=== PATIENT | female | born 1940 | race Two or more races ===

== ENCOUNTER 2018-07-24 02:22 | Emergency (ER) | payer MEDICARE ==
[2018-07-24 02:37] VITALS: BP 156/100
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
== END 2018-07-24 02:54 | disposition home or self-care (01) ==
LOC: JD.ED 02:22
DX: Z02.89 Encounter for other administrative examinations (principal); Z88.0 Allergy status to penicillin; Z79.82 Long term (current) use of aspirin; Z79.899 Other long term (current) drug therapy
CPT/HCPCS: 99283

== ENCOUNTER 2018-07-24 21:29 | Emergency (ER) | payer MEDICARE ==
[2018-07-24] MEDS ORDERED: Aspirin 81 MG Tab.Chew PO ONE (22:07)
[2018-07-24] MEDS ORDERED: Sodium Chloride 0.9% 10 ML Syringe FLUSH PRN (22:07)
--- NOTE | 2018-07-24 22:53 | EDM.PDOC ---
ED HPI GENERAL MEDICAL PROBLEM - General Chief Complaint: Chest Pain Stated Complaint: [facility] Time Seen by Provider: 07/24/18 22:45 - History of Present Illness INITIAL COMMENTS - FREE TEXT/NARRATIVE: 78-year-old female presents emergency room with chest pain and elevated hypertension. Patient had a bout of chest pain several hours ago Patient has long-standing coronary issues and has been incarcerated for the last couple of days and has been off her medications. Upon arrival here she is concerned about her blood pressure by her chest pain is gone and from talking to her chest pain is been on for a couple hours now. The patient denies any pain radiating into her arms no shortness of breath. Chest Pain Score (Numeric/FACES): 7 - Related Data Allergies Allergy/AdvReac Type Severity Reaction Status Date / Time Penicillins Allergy Severe Rash Verified 06/01/14 11:02 Home Meds: Home Meds Amiodarone [Pacerone] 0 mg PO DAILY 09/25/13 [History] Aspirin [Jonah Chewable] 81 mg PO DAILY 09/25/13 [History] Ramipril [Altace] 0 mg PO BID 09/25/13 [History] Ascorbate Calcium [Vitamin C] 500 mg PO DAILY 06/01/14 [History] Cholecalciferol (Vitamin D3) [Vitamin D] 1,000 units PO DAILY 06/01/14 [History] Doxazosin [Cardura] 1 mg PO BEDTIME 06/01/14 [History] Potassium Chloride [Klor-Con M20] 20 meq PO DAILY 06/01/14 [History] Past Medical History Cardiovascular History: Reports: Bypass, CAD, High Cholesterol, Hypertension Gastrointestinal History: Reports: Chronic Constipation Endocrine/Metabolic History: Reports: Hypothyroidism Other Endocrine/Metabolic History: states thyroid was removed - Past Surgical History Cardiovascular Surgical History: Reports: Coronary Artery Stent, Valve Replacement GI Surgical History: Reports: Other (See Below) Female Surgical History: Reports: Hysterectomy Social & Family History - Family History Family Medical History: Noncontributory - Tobacco Use Smoking Status *Q: Never Smoker - Caffeine Use Caffeine Use: Reports: Soda, Tea - Recreational Drug Use Recreational Drug Use: No ED ROS GENERAL - Review of Systems Review Of Systems: See Below Constitutional: Reports: No Symptoms HEENT: Reports: No Symptoms Respiratory: Reports: No Symptoms Cardiovascular: Reports: Chest Pain Endocrine: Reports: No Symptoms GI/Abdominal: Reports: No Symptoms : Reports: No Symptoms Musculoskeletal: Reports: No Symptoms Skin: Reports: No Symptoms Neurological: Reports: No Symptoms ED EXAM, GENERAL - Physical Exam Exam: See Below General Appearance: Alert, WD/WN, No Apparent Distress Ears: Normal External Exam, Normal Canal, Hearing Grossly Normal, Normal TMs Nose: Normal Inspection, Normal Mucosa, No Blood Throat/Mouth: Normal Inspection, Normal Lips, Normal Gums, Normal Oropharynx, Normal Voice, No Airway Compromise Head: Atraumatic, Normocephalic Neck: Normal Inspection, Supple, Non-Tender, Full Range of Motion Respiratory/Chest: No Respiratory Distress, Lungs Clear, Normal Breath Sounds, No Accessory Muscle Use, Chest Non-Tender Cardiovascular: Normal Peripheral Pulses, Regular Rate, Rhythm, No Edema, No Gallop, No JVD, No Murmur, No Rub GI/Abdominal: Normal Bowel Sounds, Soft, Non-Tender, No Organomegaly, No Distention, No Abnormal Bruit, No Mass Back Exam: Normal Inspection. No: CVA Tenderness (L), CVA Tenderness (R) Extremities: Normal Inspection. No: Pedal Edema EKG INTERPRETATION EKG Date: 07/25/18 Rhythm: Other (Paced rhythm) [place]: Normal P-Wave: Absent QRS: Wide ST-T: Other (Normal for a wide-complex paced rhythm) Comparison: NA - No Prior EKG Course - Vital Signs Last Recorded V/S: Last Vital Signs Temp 36.2 C 07/24/18 21:38 Pulse 78 07/24/18 21:38 Resp 15 07/24/18 21:38 BP 181/93 H 07/25/18 00:32 Pulse Ox 99 07/24/18 21:38 - Orders/Labs/Meds Orders: Active Orders 24 hr Category Date Time Status EKG Documentation Completion [RC] ASDIRECTED Care 07/24/18 22:07 Active Chest 1V Frontal [CR] Stat Exams 07/24/18 22:21 Taken Sodium Chloride 0.9% [Saline Flush] Med 07/24/18 22:07 Active 10 ml FLUSH ASDIRECTED PRN Saline Lock Insert [OM.PC] Routine Oth 07/24/18 22:07 Ordered EKG 12 Lead [EK] Stat Ther 07/24/18 22:07 Ordered Medication Orders Sodium Chloride (Saline Flush) 10 ml FLUSH ASDIRECTED PRN PRN Reason: Keep Vein Open Last Admin: 07/24/18 22:11 Dose: 10 ml Labs: Laboratory Tests 07/24/18 07/24/18 07/24/18 Range/Units 22:20 22:20 22:20 WBC 7.94 (3.98-10.04) K/mm3 RBC 5.44 H (3.98-5.22) M/mm3 Hgb 16.0 H D (11.2-15.7) gm/L Hct 46.4 H (34.1-44.9) % MCV 85.3 (79.4-94.8) fl MCH 29.4 (25.6-32.2) pg MCHC 34.5 (32.2-35.5) g/dl RDW Std Deviation 46.7 H (36.4-46.3) fL Plt Count 162 L (182-369) K/mm3 MPV 11.3 (9.4-12.3) fl Neut % (Auto) 68.1 (34.0-71.1) % Lymph % (Auto) 20.7 (19.3-51.7) % [place] % (Auto) 8.6 (4.7-12.5) % Eos % (Auto) 2.0 (0.7-5.8) Baso % (Auto) 0.6 (0.1-1.2) % Neut # (Auto) 5.41 (1.56-6.13) K/mm3 Lymph # (Auto) 1.64 (1.18-3.74) K/mm3 [place] # (Auto) 0.68 H (0.24-0.36) K/mm3 Eos # (Auto) 0.16 (0.04-0.36) K/mm3 Baso # (Auto) 0.05 (0.01-0.08) K/mm3 PT 10.9 (9.5-12.1) SECONDS INR 1.00 APTT 27 (24-31) SECONDS Sodium (136-145) mEq/L Potassium (3.5-5.1) mEq/L Chloride (98-107) mEq/L Carbon Dioxide (21-32) mEq/L Anion Gap (5-15) BUN (7-18) mg/dL Creatinine (0.55-1.02) mg/dL Est Cr Clr Drug Dosing mL/min Estimated GFR (MDRD) (>60) mL/min BUN/Creatinine Ratio (14-18) Glucose (83-115) mg/dL Calcium (8.5-10.1) mg/dL Magnesium (1.8-2.4) mg/dl Total Bilirubin (0.2-1.0) mg/dL AST (15-37) U/L ALT (14-59) U/L Alkaline Phosphatase (46-116) U/L CK-MB (CK-2) 4.1 H (0-3.6) ng/ml Troponin I < 0.017 (0.00-0.056) ng/mL Total Protein (6.4-8.2) g/dl Albumin (3.4-5.0) g/dl Globulin gm/dL Albumin/Globulin Ratio (1-2) 07/24/18 07/25/18 Range/Units 22:20 00:20 WBC (3.98-10.04) K/mm3 RBC (3.98-5.22) M/mm3 Hgb (11.2-15.7) gm/L Hct (34.1-44.9) % MCV (79.4-94.8) fl MCH (25.6-32.2) pg MCHC (32.2-35.5) g/dl RDW Std Deviation (36.4-46.3) fL Plt Count (182-369) K/mm3 MPV (9.4-12.3) fl Neut % (Auto) (34.0-71.1) % Lymph % (Auto) (19.3-51.7) % [place] % (Auto) (4.7-12.5) % Eos % (Auto) (0.7-5.8) Baso % (Auto) (0.1-1.2) % Neut # (Auto) (1.56-6.13) K/mm3 Lymph # (Auto) (1.18-3.74) K/mm3 [place] # (Auto) (0.24-0.36) K/mm3 Eos # (Auto) (0.04-0.36) K/mm3 Baso # (Auto) (0.01-0.08) K/mm3 PT (9.5-12.1) SECONDS INR APTT (24-31) SECONDS Sodium 141 (136-145) mEq/L Potassium 3.7 (3.5-5.1) mEq/L Chloride 105 (98-107) mEq/L Carbon Dioxide 24 (21-32) mEq/L Anion Gap 15.7 H (5-15) BUN 12 (7-18) mg/dL Creatinine 0.8 (0.55-1.02) mg/dL Est Cr Clr Drug Dosing 48.72 mL/min Estimated GFR (MDRD) > 60 (>60) mL/min BUN/Creatinine Ratio 15.0 (14-18) Glucose 95 (83-115) mg/dL Calcium 9.9 (8.5-10.1) mg/dL Magnesium 2.2 (1.8-2.4) mg/dl Total Bilirubin 0.7 (0.2-1.0) mg/dL AST 26 (15-37) U/L ALT 25 (14-59) U/L Alkaline Phosphatase 135 H (46-116) U/L CK-MB (CK-2) (0-3.6) ng/ml Troponin I 0.022 (0.00-0.056) ng/mL Total Protein 8.3 H (6.4-8.2) g/dl Albumin 4.2 (3.4-5.0) g/dl Globulin 4.1 gm/dL Albumin/Globulin Ratio 1.0 (1-2) Meds: Medications Generic Name Dose Route Start Last Admin Trade Name Freq PRN Reason Stop Dose Admin Sodium Chloride 10 ml 07/24/18 22:07 07/24/18 22:11 Saline Flush FLUSH 10 ml ASDIRECTED PRN Administration Keep Vein Open Discontinued Medications Generic Name Dose Route Start Last Admin Trade Name Freq PRN Reason Stop Dose Admin Aspirin 324 mg 07/24/18 22:07 07/24/18 22:11 Aspirin PO 07/24/18 22:08 324 mg ONETIME ONE Administration Levothyroxine Sodium 125 mcg 07/25/18 00:08 07/25/18 00:32 Levothyroxine PO 07/25/18 00:09 125 mcg ONETIME ONE Administration Lisinopril 10 mg 07/25/18 00:15 07/25/18 00:32 Prinivil PO 07/25/18 00:16 10 mg ONETIME ONE Administration - Re-Assessments/Exams Free Text/Narrative Re-Assessment/Exam: 07/25/18 01:54 Return evaluation is unrevealing chest x-ray shows no acute changes she has some cardiomegaly pacemaker noted. Initial labs unremarkable including a negative troponin follow-up as troponin was obtained and was negative as well the patient is been for the most part symptom-free with moderately elevated blood pressure here she was given some lisinopril. The patient will be discharged home not back to the assisted and can resume her normal medications this evening With her multiple risk factors did discuss staying in the hospital for further observation and she declined this option. Departure - Departure Time of Disposition: 01:56 Disposition: Home, Self-Care 01 Clinical Impression: Chest pain, Hypertension Referrals: Meghan Correa MD [Primary Care Provider] - Forms: ED Department Discharge Additional Instructions: Go home and resume all your routine medications. Return to the emergency room with any questions or problems - My Orders Last 24 Hours: My Active Orders 07/24/18 22:07 EKG Documentation Completion [RC] ASDIRECTED Sodium Chloride 0.9% [Saline Flush] 10 ml FLUSH ASDIRECTED PRN Saline Lock Insert [OM.PC] Routine EKG 12 Lead [EK] Stat 07/24/18 22:21 Chest 1V Frontal [CR] Stat - Assessment/Plan Last 24 Hours: My Active Orders 07/24/18 22:07 EKG Documentation Completion [RC] ASDIRECTED Sodium Chloride 0.9% [Saline Flush] 10 ml FLUSH ASDIRECTED PRN Saline Lock Insert [OM.PC] Routine EKG 12 Lead [EK] Stat 07/24/18 22:21 Chest 1V Frontal [CR] Stat
[2018-07-25] MEDS ORDERED: Levothyroxine 125 MCG Tab PO ONE (00:08)
[2018-07-25] MEDS ORDERED: Lisinopril 10 MG Tab PO ONE (00:15)
[2018-07-25 00:32] VITALS: BP 181/93
--- NOTE | 2018-07-26 06:34 | CR ---
Chest: Portable view of the chest was obtained. Comparison: Prior chest x-ray of 06/01/14. Heart is enlarged. 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 Tortuous thoracic aorta is seen. Pacemaker is present. Lungs are clear with no acute parenchymal change. Bony structures are grossly intact. Impression: 1. Mild cardiomegaly. Other findings as noted above. 2. Nothing acute is appreciated. Diagnostic code #2
== END 2018-07-25 02:00 | disposition home or self-care (01) ==
LOC: JD.ED 21:29 → SUPCPDRO 21:29 → JD.ED 07-25 02:00
DX: R07.9 Chest pain, unspecified (principal); I10 Essential (primary) hypertension; I25.10 Atherosclerotic heart disease of native coronary artery without angina pectoris; Z88.0 Allergy status to penicillin; Z79.82 Long term (current) use of aspirin; Z79.899 Other long term (current) drug therapy; E78.00 Pure hypercholesterolemia, unspecified
CPT/HCPCS: 36415; 71045; 80053; 82553; 83735; 84484; 85025; 85610; 85730; 93005; 99285; A9270; 93010; 99284

== ENCOUNTER 2024-03-26 13:31 | Inpatient (IN) | payer MEDICARE, MEDICAID ==
[2024-03-26 13:56] LABS: BASOPHILS PERCENT AUTO 0.4 % (0.0-1.0); EOSINOPHILS PERCENT AUTO 0.4 % (0.0-6.0); HEMATOCRIT 43.9 % (37.0-47.0); HEMOGLOBIN 14.2 gm/dl (12.0-16.0); IMMATURE GRAN ABSOLUTE AUTO 0.06 K/mm3 (0.00-0.05); IMMATURE GRAN PERCENT AUTO 0.5 % (0.0-0.4); LYMPHOCYTES ABSOLUTE AUTO 0.8 K/mm3 (1.0-4.8); LYMPHOCYTES PERCENT AUTO 7.1 % (24.0-44.0); MEAN CORPUSCULAR HEMOGLOBIN 28.7 pg (28.0-32.0); MEAN CORPUSCULAR HGB CONC 32.3 g/dl (32.0-36.0); MEAN CORPUSCULAR VOLUME 88.9 fl (83.0-99.0); MEAN PLATELET VOLUME 9.4 fl (9.4-12.3); MONOCYTES ABSOLUTE AUTO 0.9 K/mm3 (0.0-0.8); MONOCYTES PERCENT AUTO 8.3 % (0.0-8.0); NEUTROPHILS ABSOLUTE AUTO 9.4 K/mm3 (1.8-7.7); NEUTROPHILS PERCENT AUTO 83.3 % (41.0-71.0); PLATELET COUNT,PLT 252 K/mm3 (150-400); RED BLOOD CELL COUNT 4.94 M/mm3 (4.10-5.30); WHITE BLOOD CELL COUNT,WBC 11.27 K/mm3 (3.9-11.3)
[2024-03-26 14:08] LABS: INR 1.13; PROTHROMBIN TIME 11.9 SECONDS (9.7-12.0)
[2024-03-26 14:13] LABS: A/G RATIO 0.7 (1-2); ALANINE AMINOTRANSFERASE,ALT 24 U/L (14-59); ALBUMIN 2.9 g/dl (3.4-5.0); ALKALINE PHOSPHATASE 100 U/L (46-116); ANION GAP 16.2 (5-15); ASPARTATE AMNIOTRANSFERASE,AST 33 U/L (15-37); BLOOD UREA NITROGEN,BUN 13 mg/dL (7-18); BUN/CREATININE RATIO 21.7 (14-18); CALCIUM 8.9 mg/dL (8.5-10.1); CARBON DIOXIDE,CO2 27 mEq/L (21-32); CHLORIDE,CL 103 mEq/L (98-107); CREATINE KINASE,CK 282 U/L (26-192); CREATININE 0.6 mg/dL (0.55-1.02); ESTIMATED GFR 89 mL/min (>60); GLUCOSE RANDOM 90 mg/dL (70-99); LIPASE 41 U/L (16-77); MAGNESIUM 1.7 mg/dL (1.8-2.4); POTASSIUM,K 3.2 mEq/L (3.5-5.1); PROTEIN TOTAL,TP 6.8 g/dl (6.4-8.2); SODIUM,NA 143 mEq/L (136-145); TROPONIN I HIGH SENSITIVITY 27 pg/mL (<=51)
[2024-03-26] MEDS: Sodium Chloride 0.9% 1,000 ML IV ONE (14:25)
[2024-03-26 16:56] LABS: APPEARANCE,URINE SLT CLOUDY (Clear); BILIRUBIN,URINE NEGATIVE (Negative); COLOR,URINE YELLOW (Yellow); GLUCOSE,URINE NEGATIVE (Negative); KETONES,URINE 2+ (Negative); LEUKOCYTE ESTERASE,URINE TRACE (Negative); NITRITE,URINE POSITIVE (Negative); OCCULT BLOOD,URINE TRACE-INTACT (Negative); PH,URINE 5.5 (5.0-8.0); PROTEIN,URINE 2+ (Negative)
[2024-03-26 17:08] LABS: BACTERIA,URINE MANY /hpf (FEW); MUCUS,URINE FEW /hpf (FEW)
[2024-03-26 17:10] LABS: TSH 13.86 uIU/mL (0.358-3.74)
[2024-03-26] MEDS ORDERED: Levofloxacin/Dextrose 5%-Water 750 MG in Premix Bag 1 BAG IV SCH (17:15)
[2024-03-26] MEDS ORDERED: Sodium Chloride 0.9% 1,000 ML IV SCH (17:15)
[2024-03-26 17:31] LABS: T4 FREE 1.27 ng/dL (0.76-1.46)
[2024-03-26] MEDS ORDERED: Levofloxacin/Dextrose 5%-Water 750 MG in Premix Bag 1 BAG IV ONE (18:00)
[2024-03-26] MEDS: Sodium Chloride 0.9% 250 ML IV ONE (18:10)
[2024-03-26] MEDS: Potassium Chloride 20 MEQ Tab.ER PO ONE (18:14)
[2024-03-26] MEDS: Levofloxacin/Dextrose 5%-Water 750 MG in Premix Bag 1 BAG IV SCH (18:30)
[2024-03-26] MEDS: cefTRIAXone 1 GM Vial IVPUSH SCH (18:32)
[2024-03-26] MEDS: Magnesium Sulfate 2 GM/50 mL 2 GM in Premix Bag 1 BAG IV ONE (18:39)
[2024-03-26] MEDS: Doxycycline 100 MG in Sodium Chloride 0.9% 100 ML IV SCH (20:51)
[2024-03-26] MEDS: Acetaminophen 325 MG Tab PO PRN (20:56)
[2024-03-27 06:00] LABS: BASOPHILS PERCENT AUTO 0.5 % (0.0-1.0); EOSINOPHILS ABSOLUTE AUTO 0.2 K/mm3 (0.0-0.4); EOSINOPHILS PERCENT AUTO 2.3 % (0.0-6.0); HEMATOCRIT 37.5 % (37.0-47.0); IMMATURE GRAN ABSOLUTE AUTO 0.06 K/mm3 (0.00-0.05); IMMATURE GRAN PERCENT AUTO 0.8 % (0.0-0.4); LYMPHOCYTES ABSOLUTE AUTO 0.9 K/mm3 (1.0-4.8); LYMPHOCYTES PERCENT AUTO 11.6 % (24.0-44.0); MEAN CORPUSCULAR HEMOGLOBIN 28.6 pg (28.0-32.0); MEAN CORPUSCULAR HGB CONC 31.7 g/dl (32.0-36.0); MEAN CORPUSCULAR VOLUME 90.1 fl (83.0-99.0); MONOCYTES ABSOLUTE AUTO 0.8 K/mm3 (0.0-0.8); MONOCYTES PERCENT AUTO 10.2 % (0.0-8.0); NEUTROPHILS ABSOLUTE AUTO 5.9 K/mm3 (1.8-7.7); NEUTROPHILS PERCENT AUTO 74.6 % (41.0-71.0); PLATELET COUNT,PLT 203 K/mm3 (150-400); RED BLOOD CELL COUNT 4.16 M/mm3 (4.10-5.30); WHITE BLOOD CELL COUNT,WBC 7.86 K/mm3 (3.9-11.3)
[2024-03-27 06:03] LABS: HEMOGLOBIN 11.9 gm/dl (12.0-16.0)
[2024-03-27 06:13] LABS: A/G RATIO 0.7 (1-2); ALBUMIN 2.3 g/dl (3.4-5.0); ANION GAP 10.7 (5-15); BILIRUBIN TOTAL 0.5 mg/dL (0.2-1.0); BUN/CREATININE RATIO 25.7 (14-18); CALCIUM 8.2 mg/dL (8.5-10.1); CREATININE 0.7 mg/dL (0.55-1.02); EST CRCL DRUG DOSING (CG) 51.28 mL/min; POTASSIUM,K 3.7 mEq/L (3.5-5.1); PROTEIN TOTAL,TP 5.7 g/dl (6.4-8.2)
[2024-03-27] MEDS: Sodium Chloride 0.9% 1,000 ML IV SCH (08:05)
[2024-03-27 08:18] LABS: MAGNESIUM 2.2 mg/dL (1.8-2.4)
[2024-03-27] MEDS: Enoxaparin 40 MG/0.4 ML Syringe SUBCUT SCH (08:44)
[2024-03-27] MEDS ORDERED: FLU (Fluad Triv) TS24-25 (65UP)/MF59C/PF 45 MCG/0.5 ML Syringe IM ONE (09:00)
[2024-03-27] MEDS: Hydrochlorothiazide 12.5 MG Cap PO SCH (18:21)
[2024-03-28 05:47] LABS: BASOPHILS PERCENT AUTO 0.4 % (0.0-1.0); EOSINOPHILS ABSOLUTE AUTO 0.3 K/mm3 (0.0-0.4); EOSINOPHILS PERCENT AUTO 3.1 % (0.0-6.0); HEMATOCRIT 35.5 % (37.0-47.0); HEMOGLOBIN 11.6 gm/dl (12.0-16.0); IMMATURE GRAN ABSOLUTE AUTO 0.05 K/mm3 (0.00-0.05); IMMATURE GRAN PERCENT AUTO 0.6 % (0.0-0.4); LYMPHOCYTES ABSOLUTE AUTO 1.1 K/mm3 (1.0-4.8); LYMPHOCYTES PERCENT AUTO 12.9 % (24.0-44.0); MEAN CORPUSCULAR HEMOGLOBIN 29.1 pg (28.0-32.0); MEAN CORPUSCULAR HGB CONC 32.7 g/dl (32.0-36.0); MEAN CORPUSCULAR VOLUME 89.2 fl (83.0-99.0); MEAN PLATELET VOLUME 9.8 fl (9.4-12.3); MONOCYTES ABSOLUTE AUTO 0.8 K/mm3 (0.0-0.8); MONOCYTES PERCENT AUTO 9.4 % (0.0-8.0); NEUTROPHILS PERCENT AUTO 73.6 % (41.0-71.0); PLATELET COUNT,PLT 202 K/mm3 (150-400); RED BLOOD CELL COUNT 3.98 M/mm3 (4.10-5.30); WHITE BLOOD CELL COUNT,WBC 8.12 K/mm3 (3.9-11.3)
[2024-03-28 06:06] LABS: A/G RATIO 0.7 (1-2); ALBUMIN 2.4 g/dl (3.4-5.0); ANION GAP 12.6 (5-15); BILIRUBIN TOTAL 0.3 mg/dL (0.2-1.0); BUN/CREATININE RATIO 21.7 (14-18); CALCIUM 8.3 mg/dL (8.5-10.1); CREATININE 0.6 mg/dL (0.55-1.02); EST CRCL DRUG DOSING (CG) 65.47 mL/min; POTASSIUM,K 3.6 mEq/L (3.5-5.1); PROTEIN TOTAL,TP 5.7 g/dl (6.4-8.2)
[2024-03-28] MEDS: Levothyroxine 25 MCG Tab PO SCH (08:28)
[2024-03-28] MEDS: Aspirin 81 MG Tab.EC PO SCH (09:06)
[2024-03-28] MEDS: Polyethylene Glycol 3350 Powder 17 GM Packet PO PRN (13:53)
[2024-03-28] MEDS: Lisinopril 20 MG Tab PO SCH (20:26)
[2024-03-29 04:43] LABS: BASOPHILS PERCENT AUTO 0.5 % (0.0-1.0); EOSINOPHILS ABSOLUTE AUTO 0.3 K/mm3 (0.0-0.4); EOSINOPHILS PERCENT AUTO 4.5 % (0.0-6.0); HEMATOCRIT 36.6 % (37.0-47.0); HEMOGLOBIN 11.9 gm/dl (12.0-16.0); IMMATURE GRAN ABSOLUTE AUTO 0.03 K/mm3 (0.00-0.05); IMMATURE GRAN PERCENT AUTO 0.5 % (0.0-0.4); LYMPHOCYTES ABSOLUTE AUTO 1.2 K/mm3 (1.0-4.8); LYMPHOCYTES PERCENT AUTO 18.2 % (24.0-44.0); MEAN CORPUSCULAR HEMOGLOBIN 28.6 pg (28.0-32.0); MEAN CORPUSCULAR HGB CONC 32.5 g/dl (32.0-36.0); MEAN PLATELET VOLUME 10.3 fl (9.4-12.3); MONOCYTES ABSOLUTE AUTO 0.6 K/mm3 (0.0-0.8); MONOCYTES PERCENT AUTO 9.4 % (0.0-8.0); NEUTROPHILS ABSOLUTE AUTO 4.4 K/mm3 (1.8-7.7); NEUTROPHILS PERCENT AUTO 66.9 % (41.0-71.0); PLATELET COUNT,PLT 199 K/mm3 (150-400); RED BLOOD CELL COUNT 4.16 M/mm3 (4.10-5.30); WHITE BLOOD CELL COUNT,WBC 6.61 K/mm3 (3.9-11.3)
[2024-03-29 05:19] LABS: A/G RATIO 0.7 (1-2); ALBUMIN 2.2 g/dl (3.4-5.0); ANION GAP 8.5 (5-15); BILIRUBIN TOTAL 0.4 mg/dL (0.2-1.0); BUN/CREATININE RATIO 16.7 (14-18); CALCIUM 8.4 mg/dL (8.5-10.1); CREATININE 0.6 mg/dL (0.55-1.02); EST CRCL DRUG DOSING (CG) 65.47 mL/min; POTASSIUM,K 3.5 mEq/L (3.5-5.1); PROTEIN TOTAL,TP 5.5 g/dl (6.4-8.2)
[2024-03-29] MEDS: Hydrochlorothiazide 25 MG Tab PO SCH (09:25)
[2024-03-31] MEDS: Apixaban 5 MG Tab PO SCH (13:19)
[2024-03-31] MEDS: Doxycycline Monohydrate 100 MG Cap PO SCH (21:00)
[2024-03-31] MEDS: atorvaSTATin 40 MG Tab PO SCH (21:00)
[2024-03-31] MEDS: Cefdinir 300 MG Cap PO SCH (21:00)
[2024-04-04] MEDS: Lisinopril 10 MG Tab PO SCH (08:26)
[2024-04-04] MEDS: Apixaban 2.5 MG Tab PO SCH (20:29)
[2024-04-10] MEDS: QUEtiapine 25 MG Tab PO SCH (17:51)
[2024-04-11] MEDS: QUEtiapine 25 MG Tab PO SCH (17:54)
[2024-04-18] MEDS: Hydrochlorothiazide 12.5 MG Cap PO SCH (09:00)
[2024-04-19] MEDS: Polyethylene Glycol 3350 Powder 17 GM Packet PO SCH (10:14)
[2024-04-24] MEDS: Ibuprofen 400 MG Tab PO PRN (10:03)
[2024-04-29] MEDS: Levothyroxine 25 MCG Tab PO SCH (05:57)
[2024-05-01] MEDS: Acetaminophen 325 MG Tab PO PRN (16:21)
[2024-05-23] MEDS: QUEtiapine 25 MG Tab PO SCH (18:10)
[2024-05-26] MEDS: QUEtiapine 25 MG Tab PO SCH (10:42)
[2024-06-07] MEDS: Citalopram 20 MG Tab PO SCH (09:29)
[2024-06-07] MEDS: QUEtiapine 25 MG Tab PO ONE (20:02)
[2024-07-01] MEDS: LORazepam 1 MG Tab PO PRN (11:41)
[2024-07-14 16:06] VITALS: BP 140/108; PULSE 64
== END 2024-07-14 12:05 | DRG 193 ==
LOC: JD.ED 13:31 → JD.MS 16:05
PROVIDERS: ADMIT Family Medicine; ATTEND Student in an Organized Health Care Education/Training Program
DX: J18.9 Pneumonia, unspecified organism (principal); M62.82 Rhabdomyolysis; G92.8 Other toxic encephalopathy; R53.1 Weakness; I10 Essential (primary) hypertension; N30.01 Acute cystitis with hematuria; R64 Cachexia; E03.9 Hypothyroidism, unspecified; T74.01XA Adult neglect or abandonment, confirmed, initial encounter; Z68.1 Body mass index [BMI] 19.9 or less, adult; I48.92 Unspecified atrial flutter; I25.810 Atherosclerosis of coronary artery bypass graft(s) without angina pectoris; X50.9XXA Other and unspecified overexertion or strenuous movements or postures, initial encounter; J98.11 Atelectasis; F03.C2 Unspecified dementia, severe, with psychotic disturbance; R62.7 Adult failure to thrive; E86.0 Dehydration; I11.0 Hypertensive heart disease with heart failure; I50.9 Heart failure, unspecified; E78.00 Pure hypercholesterolemia, unspecified; K59.00 Constipation, unspecified; S00.03XA Contusion of scalp, initial encounter; E87.6 Hypokalemia; E83.42 Hypomagnesemia; B96.20 Unspecified Escherichia coli [E. coli] as the cause of diseases classified elsewhere; E03.8 Other specified hypothyroidism; Z60.9 Problem related to social environment, unspecified; T79.6XXA Traumatic ischemia of muscle, initial encounter; J40 Bronchitis, not specified as acute or chronic; I71.21 Aneurysm of the ascending aorta, without rupture; L60.2 Onychogryphosis; I49.5 Sick sinus syndrome; I48.0 Paroxysmal atrial fibrillation; Z95.2 Presence of prosthetic heart valve; Z95.0 Presence of cardiac pacemaker; Z88.0 Allergy status to penicillin; Z79.82 Long term (current) use of aspirin; Z79.899 Other long term (current) drug therapy; Z95.1 Presence of aortocoronary bypass graft; Z95.5 Presence of coronary angioplasty implant and graft; Z90.710 Acquired absence of both cervix and uterus; Z91.148 Patient's other noncompliance with medication regimen for other reason
CPT/HCPCS: 36415; 70450; 71250; 72125; 74176; 80053; 82550; 83605; 83690; 83735; 83880; 84439; 84443; 84484; 85025; 85610; 86140; 87428; 93005; 96360; 99285; C1758; J7030; 81001; 87040; 87086; 87088; 87186; 92523-GN; 93010; 94760; 94761; 97110-GP; 97112-GP; 97116-GP; 97162-GP; 97530-GP; 99223; 99231; 99232; 99233; 99239; A9270-GY; J0696; J1650; J3475; J3490; U0002

== ENCOUNTER 2024-07-14 19:45 | Inpatient (IN) | payer MEDICAID, MEDICARE ==
[2024-07-14] MEDS ORDERED: Acetaminophen 325 MG Tab PO PRN (19:47)
[2024-07-14] MEDS: atorvaSTATin 40 MG Tab PO SCH (21:30)
[2024-07-14] MEDS: QUEtiapine 25 MG Tab PO ONE (21:30)
[2024-07-14] MEDS: Apixaban 2.5 MG Tab PO SCH (21:30)
[2024-07-15] MEDS: Levothyroxine 25 MCG Tab PO SCH (06:41)
[2024-07-15] MEDS ORDERED: Enoxaparin 40 MG/0.4 ML Syringe SUBCUT SCH (09:00)
[2024-07-15] MEDS: Polyethylene Glycol 3350 Powder 17 GM Packet PO SCH (09:57)
[2024-07-15] MEDS: Hydrochlorothiazide 12.5 MG Cap PO SCH (09:57)
[2024-07-15] MEDS: Citalopram 20 MG Tab PO SCH (09:58)
[2024-07-15] MEDS: QUEtiapine 25 MG Tab PO SCH ×2 (09:58→18:30)
[2024-07-15] MEDS: Acetaminophen 325 MG Tab PO PRN (18:32)
[2024-07-15] MEDS: Ibuprofen 400 MG Tab PO PRN (21:30)
[2024-07-17] MEDS: Bismuth Subsalicylate 262 MG/15 ML Susp 236 ML Bottle PO PRN (13:52)
[2024-07-17] MEDS: LORazepam 1 MG Tab PO PRN (15:14)
[2024-07-19] MEDS: QUEtiapine 25 MG Tab PO SCH (17:41)
[2024-07-22] MEDS ORDERED: Loperamide 2 MG Cap PO PRN (11:12)
[2024-07-24 06:02] LABS: BASOPHILS PERCENT AUTO 0.3 % (0.0-1.0); EOSINOPHILS ABSOLUTE AUTO 0.1 K/mm3 (0.0-0.4); EOSINOPHILS PERCENT AUTO 3.6 % (0.0-6.0); HEMATOCRIT 34.3 % (37.0-47.0); HEMOGLOBIN 11.1 gm/dl (12.0-16.0); IMMATURE GRAN ABSOLUTE AUTO 0.01 K/mm3 (0.00-0.05); IMMATURE GRAN PERCENT AUTO 0.3 % (0.0-0.4); LYMPHOCYTES ABSOLUTE AUTO 0.8 K/mm3 (1.0-4.8); LYMPHOCYTES PERCENT AUTO 21.6 % (24.0-44.0); MEAN CORPUSCULAR HEMOGLOBIN 28.8 pg (28.0-32.0); MEAN CORPUSCULAR HGB CONC 32.4 g/dl (32.0-36.0); MEAN CORPUSCULAR VOLUME 88.9 fl (83.0-99.0); MEAN PLATELET VOLUME 10.7 fl (9.4-12.3); MONOCYTES ABSOLUTE AUTO 0.4 K/mm3 (0.0-0.8); MONOCYTES PERCENT AUTO 10.9 % (0.0-8.0); NEUTROPHILS ABSOLUTE AUTO 2.4 K/mm3 (1.8-7.7); NEUTROPHILS PERCENT AUTO 63.3 % (41.0-71.0); PLATELET COUNT,PLT 118 K/mm3 (150-400); RED BLOOD CELL COUNT 3.86 M/mm3 (4.10-5.30); WHITE BLOOD CELL COUNT,WBC 3.85 K/mm3 (3.9-11.3)
[2024-07-24 06:41] LABS: ALBUMIN 3.1 g/dl (3.4-5.0); ANION GAP 10.7 (5-15); BILIRUBIN TOTAL 0.2 mg/dL (0.2-1.0); BUN/CREATININE RATIO 23.8 (14-18); CALCIUM 8.9 mg/dL (8.5-10.1); CREATININE 0.8 mg/dL (0.55-1.02); EST CRCL DRUG DOSING (CG) 43.84 mL/min; MAGNESIUM 2.1 mg/dL (1.8-2.4); PHOSPHORUS 3.8 mg/dL (2.6-4.7); POTASSIUM,K 3.7 mEq/L (3.5-5.1); PROTEIN TOTAL,TP 6.1 g/dl (6.4-8.2); TSH 9.573 uIU/mL (0.358-3.74)
[2024-07-24 07:13] LABS: HEMOGLOBIN A1C 5.5 %
[2024-07-24 07:45] LABS: T4 FREE 0.85 ng/dL (0.76-1.46)
[2024-07-24 07:55] LABS: FOLIC ACID 20.7 ng/mL (8.6-58.9)
[2024-07-24 08:32] LABS: VITAMIN D,25-HYDROXY 27.5 ng/ml (30.0-100.0)
[2024-07-24] MEDS: atorvaSTATin 20 MG Tab PO SCH (21:03)
[2024-07-25] MEDS: Levothyroxine 50 MCG Tab PO SCH (05:12)
[2024-07-25] MEDS: Potassium Chloride 20 MEQ Tab.ER PO ONE (08:53)
[2024-07-25] MEDS: Cholecalciferol (Vitamin D3) 5,000 UNIT Cap PO SCH (08:54)
[2024-07-25] MEDS ORDERED: Potassium Chloride 20 MEQ Tab.ER PO ONE (09:00)
[2024-08-12] MEDS: Hydrochlorothiazide 25 MG Tab PO SCH (21:16)
[2024-08-14] MEDS: Hydrochlorothiazide 25 MG Tab PO SCH (08:32)
[2024-08-29] MEDS: LORazepam 1 MG Tab PO ONE (09:02)
[2024-08-29 09:26] VITALS: BP 131/72; PULSE 64
== END 2024-08-29 10:20 | DRG 884 ==
LOC: JD.MS 19:45
PROVIDERS: ADMIT Student in an Organized Health Care Education/Training Program; ATTEND Family Medicine
DX: F03.C0 Unspecified dementia, severe, without behavioral disturbance, psychotic disturbance, mood disturbance, and anxiety (principal); N39.0 Urinary tract infection, site not specified; T74.01XA Adult neglect or abandonment, confirmed, initial encounter; Z66 Do not resuscitate; I25.10 Atherosclerotic heart disease of native coronary artery without angina pectoris; I10 Essential (primary) hypertension; I48.91 Unspecified atrial fibrillation; E78.00 Pure hypercholesterolemia, unspecified; K59.09 Other constipation; F09 Unspecified mental disorder due to known physiological condition; R62.7 Adult failure to thrive; E03.8 Other specified hypothyroidism; I71.21 Aneurysm of the ascending aorta, without rupture; L60.2 Onychogryphosis; E55.9 Vitamin D deficiency, unspecified; Z88.0 Allergy status to penicillin; Z79.899 Other long term (current) drug therapy; Z60.9 Problem related to social environment, unspecified; Z95.2 Presence of prosthetic heart valve; Z98.890 Other specified postprocedural states; Z90.710 Acquired absence of both cervix and uterus; Z95.0 Presence of cardiac pacemaker; Z79.01 Long term (current) use of anticoagulants; Z95.5 Presence of coronary angioplasty implant and graft
CPT/HCPCS: 36415; 80053; 80061; 82306; 82607; 82746; 83036; 83735; 84100; 84439; 84443; 85025; 99222; 99231; 99232; 99239; A9270-GY